=== PATIENT | female | born 1950 | race Two or more races ===

== ENCOUNTER 2023-06-23 11:39 | Inpatient (IN) | payer MEDICARE, MEDICAID ==
[~2023-06-23] VITALS: Ht 162.6 cm; Wt 91.0 kg
[2023-06-23 13:20] VITALS: BP 150/80; PULSE 107; RESP 18; TEMP 98.9; O2SAT 94
[2023-06-23] MEDS ORDERED: dilTIAZem 25 MG/5 ML VIAL IV ONE (13:45)
[2023-06-23 14:09] LABS: Basophils # (auto) 0 10 ^3/uL (0-0.2); Basophils % (auto) 0.3 % (0.0-2.0); Eosinophils # (auto) 0 10 ^3/uL (0-0.8); Hematocrit 42.3 % (36.0-46.0); Hemoglobin 13.5 g/dL (12.2-16.2); Lymphocytes # (auto) 1.7 10 ^3/uL (0.4-5.4); Lymphocytes % (auto) 14.2 % (10.0-50.0); Mean Corpuscular Hemoglobin 27.2 pg (28.0-32.0); Mean Corpuscular Volume 85.1 fL (80.0-100.0); Monocytes # (auto) 0.7 10 ^3/uL (0-1.3); Monocytes % (auto) 5.8 % (0.0-12.0); Neutrophils # (auto) 9.6 10 ^3/uL (1.6-8.6); Neutrophils % (auto) 79.7 % (37.0-80.0); Nucleated Red Blood Cells % 0.1 %; Red Blood Cells 4.97 10^6/uL (4.0-5.20); Red Cell Distribution Width 14.1 % (11.8-14.3); White Blood Cell 12.1 10^3/uL (4.4-10.8)
[2023-06-23 14:24] LABS: Alanine Aminotransferase 19 U/L (7-40); Albumin 4.3 g/dL (3.2-4.8); Alkaline Phosphatase 106 U/L (46-116); Anion Gap 6 (5-15); Aspartate Aminotransferase 20 U/L (13-40); BUN/Creatinine Ratio 10.5 (10.0-20.0); Bilirubin, Total 0.9 mg/dL (0.2-1.0); Blood Urea Nitrogen 10 mg/dL (9-23); Calcium 9.4 mg/dL (8.5-10.1); Carbon Dioxide 29 mmol/L (20-30); Chloride 105 mmol/L (98-107); Glucose 105 mg/dL (74-106); Potassium 3.7 mmol/L (3.5-5.1); Sodium 140 mmol/L (136-145); Total Protein 6.5 g/dL (5.7-8.2)
[2023-06-23] MEDS ORDERED: METO25TA93 PO (17:09)
[2023-06-23] MEDS ORDERED: ASPI-325 PO (17:09)
[2023-06-23] MEDS ORDERED: BENA40TA70 PO (17:09)
[2023-06-23] MEDS ORDERED: FURO40TA4 PO (17:09)
[2023-06-23] MEDS ORDERED: DILT120C44 PO (17:09)
[2023-06-23] MEDS ORDERED: ATOR20TA50 PO (17:09)
[2023-06-23] MEDS ORDERED: NITROGLYCERIN 0.4 MG SL TAB SL PRN (17:15)
[2023-06-23] MEDS ORDERED: ACETAMINOPHEN 325 MG TAB PO PRN (17:15)
[2023-06-23] MEDS ORDERED: MORPHINE SULFATE INJ 2 MG/ml SYRG IV PRN (17:15)
[2023-06-23] MEDS ORDERED: SODIUM CHLORIDE 0.9% 1,000 ML IV SCH (17:15)
[2023-06-23 17:39] LABS: Triglycerides 116 mg/dL (< 150)
[2023-06-23 17:40] LABS: LDL Cholesterol 89 mg/dL (< 100)
[2023-06-23 17:41] LABS: Cholesterol 162 mg/dL (< 200); HDL Cholesterol 60 mg/dL (40-59)
[2023-06-23] MEDS ORDERED: ATORVASTATIN 20 MG TAB PO SCH (22:00)
[2023-06-24] MEDS ORDERED: ASPirin-EC 81 mg tab PO SCH (10:00)
[2023-06-24] MEDS ORDERED: dilTIAZem 120MG ER CAP PO SCH (10:00)
[2023-06-24] MEDS ORDERED: BENAZEPRIL HCL 10 MG TAB PO SCH (10:00)
[2023-06-24] MEDS ORDERED: ENOXAPARIN SOD 40 MG/0.4 ML SYRINGE SC SCH (10:00)
[2023-06-24] MEDS ORDERED: FUROSEMIDE 40 MG TAB PO SCH (10:00)
[2023-06-24] MEDS ORDERED: METOPROLOL SUCCINATE XL 50 MG TAB PO SCH (10:00)
== END 2023-06-23 22:24 | disposition left against medical advice (07) | DRG 310 ==
LOC: ER 11:39 → TELE 17:08
PROVIDERS: ADMIT Nurse Practitioner Family; ATTEND Nurse Practitioner Family
DX: I48.0 Paroxysmal atrial fibrillation (principal); I10 Essential (primary) hypertension; E78.5 Hyperlipidemia, unspecified; E66.01 Morbid (severe) obesity due to excess calories; Z71.3 Dietary counseling and surveillance; Z79.899 Other long term (current) drug therapy; Z68.34 Body mass index [BMI] 34.0-34.9, adult
CPT/HCPCS: 36415; 71046; 80053; 80061; 84443; 84484; 85025; 93005; 99291; G0378